=== PATIENT | male | born 1990 | race Caucasian/White ===

== ENCOUNTER 2019-11-20 09:26 | Emergency (ER) | payer BC, SELFPAY ==
--- NOTE | ~2019-11-20 | CT_ITS ---
EXAMINATION: CT brain wo con EXAM DATE: 11/20/2019 09:53 INDICATION: Left-sided headache. TECHNIQUE: Spiral CT of the head was performed without contrast. Axial, coronal and sagittal images were reviewed. The dose-length product (DLP) for this examination was 605.33 mGy-cm. The exposure w as tailored according to patient size, and iterative reconstruction (ASIR) was used as additional dos e reduction technique. There is no prior study for comparison. FINDINGS: There is no acute intraparenchymal hemorrhage. No evidence of intraparenchymal brain mass lesion. No evidence of acute infarction. There is no mass effect or midline shift. The ventricles are normal in size. There are no extra-axial collections. There are no acute calvarial fractures. T he orbits are unremarkable. Soft tissue is unremarkable. There is moderate bilateral ethmoid mucoperiosteal thickening. Some frothy appearing debris in the im aged portion of left maxillary sinus. IMPRESSION: 1. No acute intracranial findings. 2. Sinus opacity without evidence of air-fluid levels.. Reviewed, dictated and finalized at location B. 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
[2019-11-20 09:26] VITALS: BP 134/91; PULSE 86; RESP 20; TEMP 36.9; O2SAT 100
--- NOTE | 2019-11-20 09:28 | ED.HA ---
HPI - Headache General Chief Complaint: Headache Stated Complaint: VILLALTA Time Seen by Provider: 11/20/19 09:27 Source: patient Mode of arrival: ambulatory Limitations: no limitations History of Present Illness HPI Narrative: Pt is a 29 y/o male who presents to the ED with c/o a lt sided VILLALTA that started an hour ago while he was sitting on the couch. He states that he has had VILLALTA's in the past but his VILLALTA this morning feels different. He denies photophobia, focal weakness, N/V, or fever. Pt notes that he has chills. He denies any head injury. Pt took 8 Ibuprofen with no relief. MD elicited complaint: headache Onset (ago): hour(s) (1) Onset description: suddenly and while at rest Location: left Severity: severe Relieving factors: nothing Context: occurred at rest Associated symptoms: other (chills) Treatments prior to arrival: ibuprofen Related Data Allergies Allergy/AdvReac Type Severity Reaction Status Date / Time codeine AdvReac Unknown Verified 12/15/16 13:22 Review of Systems Review of Systems: All systems reviewed & are unremarkable except as noted in HPI and below Constitutional: Constitutional: Reports chills and Denies fever(s) Eyes: Eyes: Denies photophobia Gastrointestinal: Gastrointestinal: Denies nausea and Denies vomiting Neurologic: Reports headache(s) and Denies focal weakness PMFSH Past Medical History Medical History (Updated 11/20/19 @ 11:24 by Mehdi Perez MD) No significant past medical history Surgical History Surgical History (Updated 11/20/19 @ 09:36 by Marcella Reyes) No significant past surgical history Social History Social History (Updated 11/20/19 @ 09:37 by Marcella Reyes) Smoking status: Current every day smoker Exam Narrative: Exam Narrative: GENERAL: Well-appearing, well-nourished, and in no acute distress. HEAD: Normocephalic, atraumatic. EYES: PERRLA and EOMI. ENT: Nares clear, . Mucous membranes moist. NECK: Supple. CHEST: Clear to auscultation. No respiratory distress. HEART: Regular rate and rhythm. No murmur heard. Normal peripheral pulses. ABDOMEN: Soft, nontender, nondistended, normal active bowel sounds. EXTREMITIES: Normal range of motion. No edema. SKIN: Warm, dry, no rash. NEURO: No focal deficits. Alert and oriented x3. PSYCH: Normal mood and affect. Course Course Emergency Course: Patient states he is feeling better after IV Toradol and fluids. I discussed lab and CT findings with the patient and family. We will start him on antibiotic for sinusitis. Vital Signs Vital signs: Vital Signs Temperature 36.9 C 11/20/19 09:26 Pulse Rate 86 11/20/19 09:26 Respiratory Rate 20 11/20/19 09:26 Blood Pressure 134/91 H 11/20/19 09:26 Pulse Oximetry 100 11/20/19 09:26 Temperature 36.9 C 11/20/19 09:26 Pulse Rate 86 11/20/19 09:26 Respiratory Rate 20 11/20/19 09:26 Blood Pressure 134/91 H 11/20/19 09:26 Pulse Oximetry 100 11/20/19 09:26 MDM - Headache Lab Data Result diagrams: 11/20/19 09:38 11/20/19 09:58 Labs: Lab Results 11/20/19 11/20/19 Range/Units 09:38 09:58 WBC 10.3 H (4.5-10.0) K/mm3 RBC 4.61 (4.6-6.20) M/mm3 Hgb 14.3 (14.0-18.0) g/dL Hct 43.3 (42.0-52.0) % MCV 93.9 (80-100) fl MCH 31.0 (26-34) pg MCHC 33.0 (32-36) g/dl RDW 12.0 (11.5-14.5) % Plt Count 170 (150-375) k/mm3 MPV 12.0 H (7.4-10.4) fl Immature Gran % (Auto) 0.3 (0-0.5) % Neut % (Auto) 66.8 (45.5-73.1) % Lymph % (Auto) 14.3 L (18.3-44.2) % Will % (Auto) 10.5 H (2.6-8.5) % Eos % (Auto) 7.2 H (0-4.4) % Baso % (Auto) 0.9 (0.2-1.2) % Lymph # (Auto) 1.48 (0.9-3.2) K/mm3 Will # (Auto) 1.1 H (0.1-0.6) K/mm3 Eos # (Auto) 0.7 H (0-0.3) K/mm3 Baso # (Auto) 0.1 (0.0-0.1) K/mm3 Abs Immat Gran (auto) 0.03 (0.00-0.031) K/mm3 Absolute Neuts (auto) 6.9 H (1.3-6.7) K/mm3 Absolute Nucleated RBC 0.0 (0.0-0.012) K/mm3 Nucleated R
[2019-11-20 09:47] LABS: Basophils Absolute Auto 0.1 K/mm3 (0.0-0.1); Basophils Percent Auto 0.9 % (0.2-1.2); Eosinophils Absolute Auto 0.7 K/mm3 (0-0.3); Eosinophils Percent Auto 7.2 % (0-4.4); Hematocrit 43.3 % (42.0-52.0); Hemoglobin 14.3 g/dL (14.0-18.0); Immature Granulocyte Absolute 0.03 K/mm3 (0.00-0.031); Immature Granulocyte Percent A 0.3 % (0-0.5); Lymphocytes Absolute Auto 1.48 K/mm3 (0.9-3.2); Lymphocytes Percent Auto 14.3 % (18.3-44.2); Mean Corpuscular Volume 93.9 fl (80-100); Monocytes Absolute Auto 1.1 K/mm3 (0.1-0.6); Monocytes Percent Auto 10.5 % (2.6-8.5); Neutrophils Absolute Auto 6.9 K/mm3 (1.3-6.7); Neutrophils Percent Auto 66.8 % (45.5-73.1); Platelet Count Result 170 k/mm3 (150-375); Red Blood Count 4.61 M/mm3 (4.6-6.20); White Blood Count 10.3 K/mm3 (4.5-10.0)
[2019-11-20] MEDS: ONDANSETRON INJ 4 MG/2 ML VIAL IV PUSH (09:48)
[2019-11-20] MEDS: SODIUM CHLORIDE 0.9% IV 1,000 ML 150 ML IV CONT (09:48)
[2019-11-20] MEDS: KETOROLAC 30 MG/ML VIAL (*BKC) IV PUSH (09:48)
[2019-11-20 10:14] LABS: Blood Urea Nitrogen 12 mg/dL (9-20); Calcium 8.7 mg/dL (8.4-10.2); Carbon Dioxide 27 mmol/L (22-30); Chloride 103 mmol/L (98-107); Estimated CRCL calculation 88 ml/min; Estimated Glomerular Filt Rate > 60; Glucose 104 mg/dL (75-110); Potassium 3.6 mmol/L (3.4-5.0); Sodium 138 mmol/L (137-145)
[2019-11-20 11:39] VITALS: BP 111/68; PULSE 71; RESP 16; O2SAT 99
== END 2019-11-20 11:40 | disposition home or self-care (01) ==
PROVIDERS: Emergency Provider Family Medicine; PCP Physician Assistant
DX: J01.10 Acute frontal sinusitis, unspecified (principal); R51 Headache
CPT/HCPCS: 36415; 70450; 80048; 85025; 96361; 96374; 96375; 99284; J1885; J2405; J7030

== ENCOUNTER → 2023-05-14 09:42 | Outpatient (CLI) | payer BC, SELFPAY ==
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
== END ==
PROVIDERS: PCP Orthopaedic Surgery; Visit Provider Orthopaedic Surgery
DX: S83.511A Sprain of anterior cruciate ligament of right knee, initial encounter (principal); S83.281A Other tear of lateral meniscus, current injury, right knee, initial encounter; X58.XXXA Exposure to other specified factors, initial encounter
CPT/HCPCS: 73721

== ENCOUNTER 2025-04-05 01:17 | Emergency (ER) | payer BC, SELFPAY ==
[2025-04-05 01:18] VITALS: BP 143/93; PULSE 100; RESP 18; TEMP 36.4; O2SAT 99
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
--- OUTSIDE RECORDS SUMMARY | 2025-04-05 01:20 | XMS_ITS | Clinical Summary ---
Author Organization [facility] [place] [address] [facility] Address [address] [place] [address] Care Team Providers Care Buttermaker Name Role Phone Sonia Hernandez Primary Care Provider [phone] Barry Mota MD Unavailable [phone] Mac Strickland MD Unavailable [phone] Allergies No known active allergies Medications albuterol [...] reactive airway probably because he works in [employer]. Renewal of the albuterol provided to use as needed Assessment & Plan (04/01/2023 10:43 AM CDT): Continue albuterol p.r.n. Encouraged complete smoking cessation Assessment & Plan (03/29/2022 11:42 AM CDT): Continue prn albuterol Assessment & Plan (11/04/2020 10:08 PM RIP SAWYER): Continue albuterol prn Annual physical exam 11/03/2020 [...] screenings. Assessment & Plan (11/04/2020 10:08 PM RIP SAWYER): Encouraged healthy lifestyle, good nutrition and exercise. Encouraged Calcium and Vitamin D and weight bearing exercise for bone health. Reviewed immunizations Reviewed age appropirate screenings. Cigarette smoker 11/03/2020 Assessment & Plan (05/28/2024 11:09 AM CDT): Encouraged smoking cessation. Discussed 3 minutes. Reviewed options for assistance with cessation. 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 Pt declines assistance at this time but may contact the office at anytime for further help as they desire. Assessment & Plan (04/01/2023 10:43 AM CDT): Encouraged smoking cessation. Discussed 3 minutes. Reviewed options for assistance with cessation. Reviewed senior living sequela associated with smoking. Pt declines assistance at this time but may contact the office at anytime for further help as they desire. Assessment & Plan (03/29/2022 11:43 AM CDT): Encouraged smoking cessation. Discussed 3 minutes. Reviewed options for assistance with cessation. 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 Pt declines assistance at this time but may contact the office at anytime for further help as they desire. Discussed wellbutrin and he will consider. He may call to start the medication/get Rx and then would have him followup in the office 6-8 weeks after starting. No history of seizures Assessment & Plan (11/04/2020 10:08 PM RIP SAWYER): Encouraged smoking cessation. Discussed 3 minutes. Reviewed options for assistance with cessation. 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 Pt declines assistance [...] maintain. Assessment & Plan (11/03/2020 9:21 AM RIP SAWYER): Weight/BMI is in healthy range. Continue healthy lifestyle to maintain. Tobacco abuse 10/02/2018 05/28/2024 Reactive airway disease 10/02/2018 09/0 01/2024 Smoker 11/21/2016 05/28/2024 Immunizations Immunization Administration Dates Next Due Influenza, Unspecified 09/23/2023(Deferr ed: Patient Refused),10/24/2022(Deferred: Patient Refused),10/24/2021(Deferred: Patient Refused) Medical History Medical History Date Comments Asthma GERD (gastroesophageal reflux disease) rarely Family History Medical History Relation Name Comments Diabetes Father Hyperlipidemia Father Hypertension Father No Known Problems Mother Relation Name Status Comments Father Alive Mother Alive Social History Tobacco Use Types Packs/Day Years [...] on file Legal Sex Male 12:02 AM RIP SAWYER Gender Identity Not on file Sexual Orientation Not on file Obstetrics History Last Filed Vital Signs Vital Sign Reading [...] 05/28/2024 10:49 AM CDT Plan of Treatment Health Maintenance Due Date Last Done Comments Hepatitis C Screening 1989 DTaP/Tdap/Td Vaccine (1 - Tdap) 2000 Varicella Vaccines (1 of 2 - 13+ 2-dose series) 2002 Hepatitis B Screening 2007 Pneumococcal vaccine <65 (1 of 2 - PCV) 2008 Influenza Vaccine (Season Ended) 2025 Depression Screening 05/28/2025 05/28/2024, 04/01/2023, 12/25/2022, Additional history exists Regular Well Visit/Exam 18-64 05/28/2025 05/28/2024, 04/01/2023, 03/29/2022, Additional history exists HPV Vaccines Aged Out No longer eligi ble based on patient's age to complete this topic Medical Devices Implanted Type Area Technical Healthcare Consultant Device Identifier Shelf Expiration Date Model / Serial / Lot [employer] Bio-Interference 9mm 20mm Cannulated Acl Pcl Screw Interference Ar-1390 - [id number] Implanted:Qty: 1 on 07/23/2023 by Mac Strickland MD at [facility] Screw Right: Knee [employer] [id number] 2027 AR-1390 / / [employer] Graft Ligament Patella Regn Knee Frozen [id number] - [id number] - [id number] Implanted:Qty: 1 on 07/23/2023 by Mac Strickland MD at [facility] [employer] 04/03/2028 [id number] / [id number] / [id number] [employer] 8mm 20mm Cannulated Sheath Acl Pcl Screw Interference Titanium Ar-1380e - [id number] Implanted:Qty: 1 on 07/23/2023 by Mac Strickland MD at [facility] [employer] [id number] 01/21/2028 AR-1 380E / / [id number] Insurance [employer] OOS BLUE ACCESS OOS BLUE ACCESS OOS Care Teams Buttermaker Relationship Specialty Start Date End Date Sonia Hernandez PA [address] [place] [address] PCP - General Internal Medicine 11/04/19 Barry Mota MD [address] [place] [address] Consulting Physician Plastic Surgery 04/23/23 Mac tSrickland MD [address] [facility] [address] [place] [address] [place] [id number] Consulting Physician Orthopedic Surgery 07/23/23
--- NOTE | 2025-04-05 02:13 | ED.EYEPROB ---
HPI - Eye Problem General Chief complaint: Eye Problems Stated complaint: redness to left eye, something in eye Time Seen by Provider: 04/05/25 01:28 History of Present Illness HPI Narrative: Patient is a 34-year-old male who presents emergency department this evening complaining of a foreign body to his left eye. Patient states that he was working on his truck earlier today and feels as though something got into his eye. His tried to remove it using a Q-tip and was unsuccessful. Patient states that it is causing some irritation to his eye. He tried to go to sleep denied but could not to the irritation. Denies any additional symptoms or concerns. Does not wear contact lenses. Related Data Allergies Allergy/AdvReac Type Severity Reaction Status Date / Time codeine AdvReac Unknown Verified 12/15/16 13:22 Review of Systems Review of Systems: All systems are reviewed and are negative unless stated otherwise in the HPI. [facility] Past Medical History Medical History No significant past medical history Surgical History Surgical History No significant past surgical history Social History Social History Smoking status: Current every day smoker Exam Narrative: General: Alert, awake, afebrile, in no acute distress. HEENT: PERRL, no rhinorrhea, no post nasal drip, oropharynx clear, corneal foreign body noted at the 6 o'clock position. Neck: Trachea midline, no JVD, no lymphadenopathy. Cardiovascular: Regular rate and rhythm, no murmurs, rubs or gallops, no peripheral edema. Respiratory: Clear to auscultation bilaterally, no tachypnea, no wheezing, no rhonchi, no rubs, no respiratory distress. Abdomen: Soft, nontender, nondistended, no rebound, no guarding, no peritoneal signs. Musculoskeletal: No joint swelling or deformity, normal muscle tone. Skin: No rashes or petechia, no signs of infection. Psychiatric: Alert and oriented, normal behavior and judgment for situation. Neurological: Alert and oriented to person, place, and time. Follows all commands. No focal deficits, speech is clear and fluent. Course Vital Signs Vital signs: Vital Signs Temperature 97.6 F 04/05/25 01:18 Pulse Rate 100 04/05/25 01:18 Respiratory Rate 18 04/05/25 01:18 Blood Pressure 143/93 H 04/05/25 01:18 Pulse Oximetry 99 04/05/25 01:18 Oxygen Delivery Room Air 04/05/25 01:18 Temperature 97.6 F 04/05/25 01:18 Pulse Rate 100 04/05/25 01:18 Respiratory Rate 18 04/05/25 01:18 Blood Pressure 143/93 H 04/05/25 01:18 Pulse Oximetry 99 04/05/25 01:18 Oxygen Delivery Room Air 04/05/25 01:18 Procedures FB Removal Eye Foreign Body #1: Foreign Body Removal Date: 04/05/25 Foreign Body Removal Time: 02:23 Time Out performed: Yes Location: eye (L) Topical anesthetic used: proparacaine Foreign body: metal Evidence of corneal penetration: No Technique: irrigation and cotton tip swab Procedure performed under: direct visualization with magnification Post-procedure medication: ophthalmic antibiotic Patient tolerated procedure: well MDM - Eye Problem MDM Narrative Medical decision making narrative: The patient was evaluated by myself in the emergency department. History is obtained from patient who is an independent historian and physical exam was performed. External medical records were reviewed at this time. Corneal foreign body was removed a detailed under procedural note. Differential diagnosis considerations include corneal foreign body versus corneal abrasion. Comorbidities impacting this visit include none pain I have evaluated and discussed social determinants of health with the patient that could potentially impact subsequent diagnosis and treatment plans. On repeat assessment of the patient, reevaluation revealed that the patient is doing well and is in no acute distress. Patient symptoms have improved since he arrived to our emergency department. Repeat vital signs were all reviewed and noted to be stable. Differential diagnosis and treatment plan were discussed with the patient at bedside. Patient agrees with discussion and after shared medical decision making agrees with discharge. All questions were answered to the patient's satisfaction. Patient will follow up with [facility] in 3-5 days. Started on ciprofloxacin eyedrops and instructed him how to use them. Patient was provided with strict return precautions and instructed to return to the emergency department if any new or worsening symptoms develop. The patient was discharged in stable condition. Discharge Plan Discharge Clinical Impression: Corneal abrasion, Corneal foreign body Patient Disposition: Home Condition: Improved Instructions: Antibiotic Form, Eye Foreign Body (ED) Additional Instructions: Please follow-up with [facility] within next 3-5 days. Return to emergency department if any new or worsening symptoms develop. Use the prescribed eye drops as instructed: Two drops your left eye 4 times daily for 3 days. Patient Language: Nepali Prescriptions: No Action amoxicillin-pot clavulanate [Augmentin] 875-125 mg tablet 1 tablet PO Q12H Qty: 20 0RF tramadol 50 mg tablet 50 mg PO Q6H PRN (Reason: pain) Qty: 20 0RF Follow-up/Referrals: [facility] [Outside] - 3 Days PHYSICIAN,GUEST RELATIONS MANAGER [Primary Care Provider] - Time of Disposition: 02:20
--- OUTSIDE RECORDS SUMMARY | 2025-04-05 02:29 | XMS_ITS | Clinical Summary ---
Author Organization [facility] [place] [address] [facility] Address [address] [place] [address] Care Team Providers Care Match Up Worker Name Role Phone Sonia Hernandez Primary Care Provider [phone] Barry Mota MD Unavailable [phone] Mac Strickland MD Unavailable [phone] Allergies No known active allergies Medications albuterol [...] reactive airway probably because he works in [employer]. Renewal of the albuterol provided to use as needed Assessment & Plan (04/01/2023 10:43 AM CDT): Continue albuterol p.r.n. 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 Assessment & Plan (11/04/2020 10:08 PM INDUSTRIAL ELECTRICAL TECHNICIAN): Encouraged healthy lifestyle, good nutrition and exercise. Encouraged Calcium and Vitamin D and weight bearing exercise for bone health. Reviewed immunizations Reviewed age appropirate screenings. Cigarette smoker 11/03/2020 Assessment & Plan (05/28/2024 11:09 AM CDT): Encouraged smoking cessation. Discussed 3 minutes. Reviewed options for assistance with cessation. 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 Pt declines assistance at this time but may contact the office at anytime for further help as they desire. Assessment & Plan (04/01/2023 10:43 AM CDT): Encouraged smoking cessation. Discussed 3 minutes. Reviewed options for assistance with cessation. Reviewed long-term sequela associated with smoking. Pt declines assistance at this time but may contact the office at anytime for further help as they desire. Assessment & Plan (03/29/2022 11:43 AM CDT): Encouraged smoking cessation. Discussed 3 minutes. Reviewed options for assistance with cessation. 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 Pt declines assistance at this time but may contact the office at anytime for further help as they desire. Discussed wellbutrin and he will consider. He may call to start the medication/get Rx and then would have him followup in the office 6-8 weeks after starting. No history of seizures Assessment & Plan (11/04/2020 10:08 PM INDUSTRIAL ELECTRICAL TECHNICIAN): Encouraged smoking cessation. Discussed 3 minutes. Reviewed options for assistance with cessation. 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 Pt declines [...] maintain. Assessment & Plan (11/03/2020 9:21 AM INDUSTRIAL ELECTRICAL TECHNICIAN): Weight/BMI is in healthy range. 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 Gender Identity Not on file Sexual Orientation [...] this topic Medical Devices Implanted Type Area Car Shifter Device Identifier Shelf Expiration Date Model / Serial / Lot [employer] Bio-Interference 9mm 20mm Cannulated Acl Pcl Screw Interference Ar-1390 - [id number] Implanted:Qty: 1 on 07/23/2023 by Mac Strickland MD at [facility] Screw Right: Knee [employer] [id number] 2027 AR-1390 / / [employer]os[employer] Graft Ligament Patella Regn Knee Frozen [id number] - [id number] - [id number] Implanted:Qty: 1 on 07/23/2023 by Mac Strickland MD at [facility] [employer] 04/03/2028 [id number] / [id number] / [id number] [employer] 8mm 20mm Cannulated Sheath Acl Pcl Screw Interference Titanium Ar-1380e - [id number] Implanted:Qty: 1 on 07/23/2023 by Mac Strickland MD at [facility] [employer] [id number] 01/21/2028 AR-1 380E / / [id number] Insurance [employer] OOS BLUE ACCESS OOS BLUE ACCESS OOS Care Teams Match Up Worker Relationship Specialty Start Date End Date Sonia Hernandez PA [address] [place] [address] PCP - General Internal Medicine 11/04/19 Barry Mota MD [address] [place] [address] Consulting Physician Plastic Surgery 04/23/23 Mac Strickland MD [address] [place] [address] [place] [id number] Consulting Physician Orthopedic Surgery 07/23/23
--- OUTSIDE RECORDS SUMMARY | 2025-04-05 02:29 | XMS_ITS | Referral Summary ---
Author Organization [facility] [place] [address] [facility] [place] Address [address] [place] [address] Care Team Providers Care Hand Booked Folder And Stitcher Name Role Phone Sonia Hernandez Primary Care Provider [phone] Barry Mota MD Unavailable [phone] Mac Strickland MD Unavailable [phone] Allergies No known active allergies Medications albuterol [...] reactive airway probably because he works in [employer]. Renewal of the albuterol provided to use as needed Assessment & Plan (04/01/2023 10:43 AM CDT): Continue albuterol p.r.n. 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 Assessment & Plan (11/04/2020 10:08 PM CALCINER OPERATOR HELPER): Encouraged healthy lifestyle, good nutrition and exercise. Encouraged Calcium and Vitamin D and weight bearing exercise for bone health. Reviewed immunizations Reviewed age appropirate screenings. Cigarette smoker 11/03/2020 Assessment & Plan (05/28/2024 11:09 AM CDT): Encouraged smoking cessation. Discussed 3 minutes. Reviewed options for assistance with cessation. 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 Pt declines assistance at this time but may contact the office at anytime for further help as they desire. Assessment & Plan (04/01/2023 10:43 AM CDT): Encouraged smoking cessation. Discussed 3 minutes. Reviewed options for assistance with cessation. Reviewed fdc sequela associated with smoking. Pt declines assistance at this time but may contact the office at anytime for further help as they desire. Assessment & Plan (03/29/2022 11:43 AM CDT): Encouraged smoking cessation. Discussed 3 minutes. Reviewed options for assistance with cessation. 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 Pt declines assistance at this time but may contact the office at anytime for further help as they desire. Discussed wellbutrin and he will consider. He may call to start the medication/get Rx and then would have him followup in the office 6-8 weeks after starting. No history of seizures Assessment & Plan (11/04/2020 10:08 PM CALCINER OPERATOR HELPER): Encouraged smoking cessation. Discussed 3 minutes. Reviewed options for assistance with cessation. 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 Pt declines assistance [...] maintain. Assessment & Plan (11/03/2020 9:21 AM CALCINER OPERATOR HELPER): Weight/BMI is in healthy range. 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 Gender Identity Not on file Sexual Orientation [...] on file Medical Devices Implanted Type Area Fuel Cell Assembler Device Identifier Shelf Expiration Date Model / Serial / Lot [employer] Bio-Interference 9mm 20mm Cannulated Acl Pcl Screw Interference Ar-1390 - [id number] Implanted:Qty: 1 on 07/23/2023 by Mac Strickland MD at [facility] [place] Screw Right: Knee [employer] [id number] 2027 AR-1390 / / [employer] Graft Ligament Patella Regn Knee Frozen [id number] - [id number] - [id number] Implanted:Qty: 1 on 07/23/2023 by Mac Strickland MD at [facility] [place] [employer] 04/03/2028 [id number] / [id number] / [id number] [employer] 8mm 20mm Cannulated Sheath Acl Pcl Screw Interference Titanium Ar-1380e - [id number] Implanted:Qty: 1 on 07/23/2023 by Mac Strickland MD at [facility] [place] [employer] [id number] 01/21/2028 AR-1 380E / / [id number] Insurance [employer] OOS [employer] OOS [employer] OOS Care Teams Hand Booked Folder And Stitcher Relationship Specialty Start Date End Date Sonia Hernandez PA [address] [place] [address] PCP - General Internal Medicine 11/04/19 Barry Mota MD [address] [place] [address] Consulting Physician Plastic Surgery 04/23/23 Mac Strickland MD [address] [address] Consulting Physician Orthopedic Surgery 07/23/23
[2025-04-05] MEDS: OFLOXACIN 0.3% OPHTH SOLN 5 ML BTL 1 DROP LEFT EYE (02:58)
== END 2025-04-05 03:02 | disposition home or self-care (01) ==
LOC: ANHED 02:27
PROVIDERS: Emergency Provider Emergency Medicine
DX: T15.02XA Foreign body in cornea, left eye, initial encounter (principal); F17.200 Nicotine dependence, unspecified, uncomplicated; W44.8XXA Other foreign body entering into or through a natural orifice, initial encounter
CPT/HCPCS: 65220; 65222; 99283; A9270